=== PATIENT | male | born 1990 | race Caucasian/White ===

== ENCOUNTER 2019-01-21 13:29 | Emergency (ER) | payer SELFPAY ==
--- NOTE | 2019-01-21 14:32 | ER ---
Nurse's Notes [facility] Name: Roberto Payan Age: 28 yrs Sex: Male : 1990 Arrival Date: 01/21/2019 Time: 13:30 Bed 18 Private MD: Diagnosis: Sunburn;Sunburn of first degree;Sunburn of second degree Presentation: 01/21 13:39 Presenting complaint: Patient states: Sunburn 3 days ago to upper back and shoulder. Pt ss reports minimal pain, but is concerned because there are small blisters present now. Transition of care: patient was not received from another setting of care. Onset of symptoms was January 17, 2019. Risk Assessment: Do you want to hurt yourself or someone else? Patient reports no desire to harm self or others. Initial Sepsis Screen: Does the patient meet any 2 criteria? No. Patient's initial sepsis screen is negative. Does the patient have a suspected source of infection? No. Patient's initial sepsis screen is negative. Care prior to arrival: None. 13:39 Method Of Arrival: Ambulatory ss 13:39 Acuity: SANDY 5 ss Historical: - Allergies: 13:40 No Known Allergies; ss - Home Meds: 13:40 None [Active]; ss - PMHx: 13:40 None; ss - PSHx: 13:40 Appendectomy; ss - Immunization history:: Adult Immunizations up to date. - Social history:: Smoking status: Patient/guardian denies using tobacco. - Ebola Screening: : Patient denies exposure to infectious person Patient denies travel to an Ebola-affected area in the 21 days before illness onset. Screenin:36 Abuse screen: Denies threats or abuse. Denies injuries from another. Abuse screen: sv Denies threats or abuse. Nutritional screening: No deficits noted. Tuberculosis screening: No symptoms or risk factors identified. Fall Risk None identified. Assessment: 14:03 Reassessment: awaiting provider to eval patient. ss 14:05 General: Appears in no apparent distress. uncomfortable, well developed, Behavior is sv calm, cooperative, appropriate for age. Pain: Complains of pain in right scapular area and left scapular area and right trapezius and left trapezius. Neuro: Level of Consciousness is awake, alert, obeys commands, Oriented to person, place, time, situation, Moves all extremities. Full function Gait is steady. Respiratory: Respiratory effort is even, unlabored, Respiratory pattern is regular, symmetrical. Derm: Skin is pink, warm \T\ dry. Injury Description: Burn was sustained 4 days ago 1st and 2nd degree vines. Vital Signs: 13:39 BP 129 / 77; Pulse 88; Resp 16; Temp 98.7; Pulse Ox 100% on R/A; sg ED Course: 13:30 Patient arrived in ED. as 13:31 Fredrick Coulter MD is Attending Physician. [facility] 13:36 Polly Thomas, RN is Primary Nurse. sv 13:36 Arm band placed on. sv 13:36 Patient has correct armband on for positive identification. Bed in low position. sv 13:40 Triage completed. ss 13:42 Awaiting ED provider evaluation. sv 14:45 No provider procedures requiring assistance completed. Patient did not have IV access la1 during this emergency room visit. Administered Medications: 14:44 Drug: predniSONE 60 mg Route: PO; la1 14:44 Follow up: Response: No adverse reaction; Medication administered at discharge. la1 Outcome: 14:31 Discharge ordered by . [facility] 14:45 Discharged to home ambulatory. la1 14:45 Condition: good 14:45 Discharge instructions given to patient, Instructed on discharge instructions, follow up and referral plans. Demonstrated understanding of instructions, follow-up care, medications. 14:45 Patient left the ED. la1 Signatures: Polly Thomas, MARCOS RODRÍGUEZ Kevin Mckeon RN RN Fredrick Coulter MD MD cha Martinez, Amelia as Smirch, Shelby, RN RN Enrique Barrett RN RN la1
--- NOTE | 2019-01-21 14:33 | EDPHYS ---
Physician Documentation [facility] Name: Roberto Payan Age: 28 yrs Sex: Male : 1990 Arrival Date: 01/21/2019 Time: 13:30 Bed 18 Private MD: ED Physician Fredrick Coulter HPI: 01/21 14:24 This 28 yrs old Male presents to ER via Ambulatory with complaints of Sunburn.quoc 14:24 The patient presents with a burn as a result of sunburn. Onset: The symptoms/episode quoc began/occurred 3 day(s) ago. Burn type and severity: 1st degree: 2nd degree: approximately 1% total body surface area of second degree injury. Associated signs and symptoms: none. Historical: - Allergies: 13:40 No Known Allergies; ss - Home Meds: 13:40 None [Active]; ss - PMHx: 13:40 None; ss - PSHx: 13:40 Appendectomy; ss - Immunization history:: Adult Immunizations up to date. - Social history:: Smoking status: Patient/guardian denies using tobacco. - Ebola Screening: : Patient denies exposure to infectious person Patient denies travel to an Ebola-affected area in the 21 days before illness onset. ROS: 14:28 Constitutional: Negative for fever, chills, and weight loss, Eyes: Negative for injury, quoc pain, redness, and discharge, ENT: Negative for injury, pain, and discharge, Neck: Negative for injury, pain, and swelling, Cardiovascular: Negative for chest pain, palpitations, and edema, Respiratory: Negative for shortness of breath, cough, wheezing, and pleuritic chest pain, Abdomen/GI: Negative for abdominal pain, nausea, vomiting, diarrhea, and constipation, : Negative for injury, bleeding, discharge, and swelling, MS/Extremity: Negative for injury and deformity, Neuro: Negative for headache, weakness, numbness, tingling, and seizure, Psych: Negative for depression, anxiety, suicide ideation, homicidal ideation, and hallucinations, Allergy/Immunology: Negative for hives, rash, and allergies, Endocrine: Negative for neck swelling, polydipsia, polyuria, polyphagia, and marked weight changes, Hematologic/Lymphatic: Negative for swollen nodes, abnormal bleeding, and unusual bruising. 14:28 Back: Positive for pain at rest. 14:28 Skin: Positive for burn, of the left trapezius, right trapezius, left scapular area, right scapular area and thoracic area. Exam: 14:28 Constitutional: This is a well developed, well nourished patient who is awake, alert, quoc and in no acute distress. Head/Face: Normocephalic, atraumatic. Eyes: Pupils equal round and reactive to light, extra-ocular motions intact. Lids and lashes normal. Conjunctiva and sclera are non-icteric and not injected. Cornea within normal limits. Periorbital areas with no swelling, redness, or edema. ENT: Nares patent. No nasal discharge, no septal abnormalities noted. Tympanic membranes are normal and external auditory canals are clear. Oropharynx with no redness, swelling, or masses, exudates, or evidence of obstruction, uvula midline. Mucous membranes moist. Neck: Trachea midline, no thyromegaly or masses palpated, and no cervical lymphadenopathy. Supple, full range of motion without nuchal rigidity, or vertebral point tenderness. No Meningismus. Chest/axilla: Normal chest wall appearance and motion. Nontender with no deformity. No lesions are appreciated. Cardiovascular: Regular rate and rhythm with a normal S1 and S2. No gallops, murmurs, or rubs. Normal PMI, no JVD. No pulse deficits. Respiratory: Lungs have equal breath sounds bilaterally, clear to auscultation and percussion. No rales, rhonchi or wheezes noted. No increased work of breathing, no retractions or nasal flaring. Abdomen/GI: Soft, non-tender, with normal bowel sounds. No distension or tympany. No guarding or rebound. No evidence of tenderness throughout. Back: No spinal tenderness. No costovertebral tenderness. Full range of motion. Male : Normal genitalia with no discharge or lesions. MS/ Extremity: Pulses equal, no cyanosis. Neurovascular intact. Full, normal range of motion. Neuro: Awake and alert, GCS 15, oriented to person, place, time, and situation. Cranial nerves II-XII grossly intact. Motor strength 5/5 in all extremities. Sensory grossly intact. Cerebellar exam normal. Normal gait. Psych: Awake, alert, with orientation to person, place and time. Behavior, mood, and affect are within normal limits. 14:28 Skin: Appearance: Color: normal in color, Temperature: normal temperature, Moisture: normal moisture, petechiae, not noted, ecchymosis, not noted, flushing, not noted, diaphoresis is not appreciated. Vital Signs: 13:39 BP 129 / 77; Pulse 88; Resp 16; Temp 98.7; Pulse Ox 100% on R/A; sg MDM: 13:47 Patient medically screened. [facility] Administered Medications: 14:44 Drug: predniSONE 60 mg Route: PO; la1 14:44 Follow up: Response: No adverse reaction; Medication administered at discharge. la1 Disposition: 01/21/19 14:31 Discharged to Home. Impression: Sunburn, Sunburn of first degree, Sunburn of second degree. - Condition is Stable. - Discharge Instructions: Sunburn, Adult, Sunburn, [id number]. - Work release form, Medication Reconciliation Form, Thank You Letter, Antibiotic Education, Prescription Opioid Use form. - Follow up: Private Physician; When: 2 - 3 days; Reason: Recheck today's complaints, Continuance of care, Re-evaluation by your physician. - Problem is new. - Symptoms have improved. Signatures: Fredrick Coulter MD MD cha Smirch, Shelby, RN RN Enrique Barrett RN RN la Corrections: (The following items were deleted from the chart) 14:45 14:31 01/21/2019 14:31 Discharged to Home. Impression: Sunburn; Sunburn of first la1 degree; Sunburn of second degree. Condition is Stable. Forms are Medication Reconciliation Form, Thank You Letter, Antibiotic Education, Prescription Opioid Use. Follow up: Private Physician; When: 2 - 3 days; Reason: Recheck today's complaints, Continuance of care, Re-evaluation by your physician. Problem is new. Symptoms have improved. quoc
[2019-01-21] MEDS ORDERED: predniSONE 20 MG TAB ONE (14:41)
== END 2019-01-21 14:45 | disposition home or self-care (01) ==
LOC: ER 13:29
DX: L55.1 Sunburn of second degree (principal)
CPT/HCPCS: 99283; J7512